=== PATIENT | female | born 1930 | race Caucasian/White ===

== ENCOUNTER 2017-03-31 11:05 | Emergency (ER) | payer MEDICARE ==
[2017-03-31 11:09] VITALS: BP 181/86; PULSE 86; RESP 20; TEMP 98.4
[2017-03-31] MEDS ORDERED: DIPH,PERTUS(ACELL)TETVAC-LF 0.5 ML VIAL IM ONE (11:40)
--- NOTE | 2017-03-31 11:49 | ED ---
General Adult HPI - General Chief complaint: Extremity Injury, Lower Stated complaint: LEFT ANKLE Time Seen by Provider: 03/31/17 11:17 Source: patient, family, RN notes reviewed Mode of arrival: wheelchair Limitations: physical limitation - History of Present Illness Initial comments: 81 female presents for evaluation of left ankle pain and swelling. Patient bumped her right ankle on Monday which was 3 days ago. She noted some increasing bruising and swelling. Patient does report pain in the morning with ambulation. This goes away as the day progresses. She was seen in urgent care and discharged home with initial x-ray read as negative. This x-ray was later interpreted by radiology as a nondisplaced fibular fracture. There was an abrasion and hematoma overlying the injury site. She was sent in for evaluation of open fracture. Patient is on blood thinners for history of atrial fibrillation. There is been no bleeding over the past 3 days. She is uncertain of her tetanus status. - Related Data Home Medications Medication Instructions Recorded Confirmed Multivitamins, Thera [Multivitamin 1 tab PO DAILY 11/01/14 03/31/17 (formulary)] Atorvastatin [Lipitor] 20 mg PO HS 08/09/15 03/31/17 Aspirin 81 mg PO DAILY 09/20/15 03/31/17 Magnesium Oxide [Mag-Ox] 400 mg PO HS 09/20/15 03/31/17 Apixaban [Eliquis] 2.5 mg PO BID 02/12/16 03/31/17 Furosemide [Lasix] 20 mg PO DAILY 02/12/16 03/31/17 Losartan [Cozaar] 50 mg PO DAILY 03/31/17 03/31/17 Allergies Allergy/AdvReac Type Severity Reaction Status Date / Time No Known Allergies Allergy Verified 03/31/17 11:19 Review of Systems ROS Statement: Those systems with pertinent positive or pertinent negative responses have been documented in the HPI. ROS Other: All systems not noted in ROS Statement are negative. 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 She says the surgery was done through her groin. Past Anesthesia/Blood Transfusion Reactions: No Reported Reaction Past Psychological History: No Psychological Hx Reported Smoking Status: Never smoker Past Alcohol Use History: None Reported Past Drug Use History: None Reported - Past Family History Father Family Medical History: COPD Sister(s) Family Medical History: Dementia Mother Family Medical History: Coronary Artery Disease (CAD) Additional Family Medical History / Comment(s): aneurysm in head General Exam Limitations: physical limitation General appearance: alert, in no apparent distress Head exam: Present: atraumatic, normocephalic Eye exam: Present: normal appearance, PERRL ENT exam: Present: mucous membranes moist Neck exam: Present: normal inspection, tenderness Respiratory exam: Present: normal lung sounds bilaterally. Absent: respiratory distress Cardiovascular Exam: Present: regular rate, normal rhythm GI/Abdominal exam: Present: soft. Absent: distended, tenderness Extremities exam: Present: normal capillary refill, other (There is a 3 cm hematoma with overlying abrasion on the left lateral ankle. There is no bony tenderness. No tenderness at the head of the fibula. No tenderness over the medial or lateral malleolus. There is no additional swelling outside of the hematoma which is proximal to the left lateral malleolus. ). Absent: joint swelling Neurological exam: Present: alert, oriented X3 Psychiatric exam: Present: normal affect, normal mood Skin exam: Present: warm, dry, erythema, abrasion Course Vital Signs 03/31/17 11:07 Temperature 98.4 F Pulse Rate 86 Respiratory 20 Rate Blood Pressure 181/86 O2 Sat by Pulse 97 Oximetry Procedures - Orthopedic Splinting/Casting Injury #1 Side: left Lower Extremity Injury Location: ankle Lower Extremity Immobilizer: stirrup splint Other Orthopedic Equipment: crutches Medical Decision Making - Medical Decision Making 87-year-old female sent for evaluation of suspected open left ankle fracture. I was able to review the x-rays, there is no significant fracture noted. There is a exceedingly tiny lucency in the distal left fibula. This is nondisplaced. This is associated with overlying hematoma and abrasion, there is no laceration. There is no suspicion for open fracture. Patient has been ambulating on this ankle for the past 3 days. She only has pain in the morning. There is no significant pain at this time. The abrasion is cleansed, is healing appropriately, bacitracin ointment is placed. Patient is placed in a splint for comfort. She will follow up with orthopedics in the next several days. Patient states she does have crutches at home. Tetanus is updated. Diagnosis: Left ankle abrasion, left nondisplaced fibular fracture Disposition Clinical Impression: Fracture of fibula, Abrasion Disposition: HOME SELF-CARE Condition: Good Referrals: Binta Da Silva MD [Primary Care Provider] - 1-2 days Duglas Trevino DO [Doctor of Osteopathic Medicine] - 1-2 days Time of Disposition: 11:48
== END 2017-03-31 12:07 | disposition home or self-care (01) ==
LOC: EC 11:05
DX: S82.402D Unspecified fracture of shaft of left fibula, subsequent encounter for closed fracture with routine healing (principal); E78.5 Hyperlipidemia, unspecified; I10 Essential (primary) hypertension; I25.10 Atherosclerotic heart disease of native coronary artery without angina pectoris; I48.91 Unspecified atrial fibrillation; M19.90 Unspecified osteoarthritis, unspecified site; Z79.01 Long term (current) use of anticoagulants; Z79.82 Long term (current) use of aspirin; Z79.899 Other long term (current) drug therapy; Z23 Encounter for immunization; W22.09XD Striking against other stationary object, subsequent encounter; Y93.89 Activity, other specified
CPT/HCPCS: 29515; 90471; 90715; 99283

== ENCOUNTER → 2017-09-22 | Outpatient (CLI) | payer MEDICARE ==
--- NOTE | 2017-09-22 11:20 | US ---
EXAMINATION TYPE: US abdomen complete DATE OF EXAM: 09/22/2017 COMPARISON: NONE CLINICAL HISTORY: R10.9 Abd pain. Intermittent epigastric pain EXAM MEASUREMENTS: Liver Length: 13.0 cm Gallbladder Wall: 0.2 cm CBD: 0.5 cm Spleen: 9.6 cm Right Kidney: 9.6 x 4.1 x 4.5 cm Left Kidney: 9.3 x 4.5 x 5.0 cm Pancreas: Tail obscured by overlying bowel gas Liver: appears wnl as visualized Gallbladder: no evidence of stones Evidence for sonographic Ha's sign: no CBD: wnl Spleen: wnl Right Kidney: cystic areas noted, largest = 4.4 x 3.0 x 3.7cm. Hyperechoic area upper pole = 0.8 x 0 .6 x 0.9cm. Upper pole cystic focus is anechoic but shows increased through transmission, questionabl e mild irregularity of the wall Left Kidney: multiple cystic areas noted, largest = 3.1 x 2.7 x 3.2cm lower pole, lower pole cyst is anechoic and shows increased through transmission. There is no perceptible wall, smaller cysts are a lso present measuring only approximately 12 mm, 11 mm and subcentimeter in size. Upper IVC: wnl Abd Aorta: Atheromatous changes are noted There is no ascites. The liver is homogenous. The intrahepatic portion of the IVC and proximal abdominal aorta are within normal limits. There is no evidence of cholelithiasis. Common bile duct is unremarkable. The visu alized portions of the pancreas are homogenous. The spleen is unremarkable. 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 Upper pole exop hytic cystic focus likely simple cystic, consider follow-up to assess for stability. There are some l imitations in exam.
== END | disposition home or self-care (01) ==
LOC: RADUSWWP 08:32
PROVIDERS: ATTEND Internal Medicine
DX: N28.1 Cyst of kidney, acquired (principal)
CPT/HCPCS: 76700

== ENCOUNTER 2018-01-09 20:24 | Emergency (ER) | payer MEDICARE ==
--- NOTE | 2018-01-09 20:46 | ED ---
Extremity Problem HPI - General Chief complaint: Extremity Problem,Nontraumatic Stated complaint: poss blood clot Time Seen by Provider: 01/09/18 20:33 Source: patient Mode of arrival: ambulatory Limitations: no limitations - History of Present Illness Initial comments: 87-year-old female patient presents to the emergency department today for evaluation of left ankle swelling. Patient states that a couple of days ago she noticed a painful lump to the inside of her left calf. Patient states that today when she woke up she noticed swelling and bruising around the ankle. Patient does have a history of atrial fibrillation and does take liquids. She denies any recent travel. She denies any injury to the ankle. States that the lump is painful however the ankle does not hurt. She is able to ambulate without difficulty. She denies any numbness or tingling to the leg. Patient denies any recent rash, fever, chills, shortness breath, chest pain, abdominal pain, nausea, vomiting, diarrhea, constipation, back pain, numbness, tingling, dizziness, weakness, hematuria, dysuria, urinary urgency, urinary frequency, headache, visual changes, or any other complaints. - Related Data Home Medications Medication Instructions Recorded Confirmed Multivitamins, Thera [Multivitamin 1 tab PO DAILY 11/01/14 01/09/18 (formulary)] Atorvastatin [Lipitor] 20 mg PO HS 08/09/15 01/09/18 Aspirin 81 mg PO DAILY 09/20/15 01/09/18 Magnesium Oxide [Mag-Ox] 400 mg PO HS 09/20/15 01/09/18 Furosemide [Lasix] 20 mg PO DAILY 02/12/16 01/09/18 Losartan [Cozaar] 50 mg PO DAILY 03/31/17 01/09/18 Apixaban [Eliquis] 2.5 mg PO BID 01/09/18 01/09/18 Omeprazole [PriLOSEC] 40 mg PO DAILY 01/09/18 01/09/18 Propafenone [Rythmol] 150 mg PO TID 01/09/18 01/09/18 Allergies Allergy/AdvReac Type Severity Reaction Status Date / Time No Known Allergies Allergy Verified 01/09/18 21:08 Review of Systems ROS Statement: Those systems with pertinent positive or pertinent negative responses have been documented in the HPI. ROS Other: All systems not noted in ROS Statement are negative. 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 She says the surgery was done through her groin. Past Anesthesia/Blood Transfusion Reactions: No Reported Reaction Past Psychological History: No Psychological Hx Reported Smoking Status: Never smoker Past Alcohol Use History: None Reported Past Drug Use History: None Reported - Past Family History Father Family Medical History: COPD Sister(s) Family Medical History: Dementia Mother Family Medical History: Coronary Artery Disease (CAD) Additional Family Medical History / Comment(s): aneurysm in head General Exam Limitations: no limitations General appearance: alert, in no apparent distress, other (This is a well- developed, well-nourished adult female patient in no acute distress. Vital signs upon presentation are temperature 98.3F, pulse 83, respirations 18, blood pressure 139/84, pulse ox 96% on room air.) Respiratory exam: Present: normal lung sounds bilaterally. Absent: respiratory distress, wheezes, rales, rhonchi, stridor Cardiovascular Exam: Present: regular rate, normal rhythm, normal heart sounds. Absent: systolic murmur, diastolic murmur, rubs, gallop, clicks Extremities exam: Present: full ROM, tenderness (Painful mass to left medial calf.), normal capillary refill, other (Left ankle swelling, ecchymosis to the medial ankle. Skin is otherwise pink, warm, and dry. Cap refills less than 3 seconds. Pedal and posttibial pulses are 2+ and equal bilaterally.). Absent: normal inspection, pedal edema, joint swelling, calf tenderness Neurological exam: Present: alert, oriented X3, CN II-XII intact Psychiatric exam: Present: normal affect, normal mood Skin exam: Present: warm, dry, intact, normal color. Absent: rash Course Vital Signs 01/09/18 20:25 Temperature 98.3 F Pulse Rate 83 Respiratory 18 Rate Blood Pressure 139/84 O2 Sat by Pulse 96 Oximetry Medical Decision Making - Medical Decision Making 87-year-old female patient presented to the emergency department today for evaluation of mass to the left medial calf and ankle swelling and ecchymosis. Physical examination did reveal some mild soft tissue swelling, nonpitting to the left ankle with ecchymosis noted to the medial aspect of the ankle. There was a circular-shaped mass noted to the left medial calf. Patient is afebrile. Vital signs are stable. We did perform ultrasound of the vascular system of the left leg and a an ultrasound of the actual mass. There is no evidence for DVT but did did show a subcutaneous nodule that should be followed clinically. Did discuss findings and results with the patient and her son. She is instructed to follow up with her primary care physician for recheck as as possible. Return parameters discussed in detail. She verbalizes understanding and agrees with this plan. - Radiology Data Radiology results: report reviewed, image reviewed Ultrasound venous Doppler duplex of the left lower extremity was obtained. Report was reviewed in its entirety. Impression is negative for DVT in the left lower extremity by Dr. Gianluca Pastrana. Ultrasound of the mass to the left lower leg was performed. Findings show probable finding. Responses subcutaneous ovoid homogenously hypoechoic mass measuring 2.5 x 0.7 x 1.0 cm. There is no acoustic shadowing. No through sound transmission. Impression by Dr. Gianluca Pastrana shows ovoid soft tissue nodule, oriented in the craniocaudal dimension. Recommend continued clinical surveillance to prove resolution. Disposition Clinical Impression: Nodule of soft tissue Disposition: HOME SELF-CARE Condition: Good Instructions: Ecchymosis (ED), Leg Edema (ED) Additional Instructions: Wear Ernesto wrap for comfort and support. Follow-up with your primary care physician for further evaluation of your nodule. Return here immediately for any new, worsening, or concerning symptoms. Is patient prescribed a controlled substance at d/c from ED?: No Referrals: Binta Da Silva MD [Primary Care Provider] - 1-2 days Time of Disposition: 21:45
--- NOTE | 2018-01-09 21:18 | US ---
EXAMINATION TYPE: US venous doppler duplex LE LT DATE OF EXAM: 01/09/2018 8:42 PM COMPARISON: NONE CLINICAL HISTORY: Pain. Left leg lump SIDE PERFORMED: Left TECHNIQUE: The lower extremity deep venous system is examined utilizing real time linear array sonog peggy with graded compression, doppler sonography and color-flow sonography. VESSELS IMAGED: External Iliac Vein (EIV) Common Femoral Vein Deep Femoral Vein Greater Saphenous Vein * Femoral Vein Popliteal Vein Small Saphenous Vein * Proximal Calf Veins (* superficial vessels) FINDINGS: Grayscale, color doppler, spectral doppler imaging performed of the deep veins of the lower extremities. There is normal flow, compressibility, vascular waveforms. IMPRESSION: NEGATIVE FOR DVT, LEFT LOWER EXTREMITY.
--- NOTE | 2018-01-09 21:35 | US ---
EXAMINATION TYPE: US extremity nonvasc mass - LT lower leg DATE OF EXAM: 01/09/2018 COMPARISON: NONE CLINICAL HISTORY: Left lower leg, medial calf lump. FINDINGS: The palpable finding corresponds to a subcutaneous ovoid homogeneously hypoechoic mass measuring 2.5 x .7 x 1.0cm . There is no acoustic shadowing. No through sound transmission. IMPRESSION: Ovoid soft tissue nodule, oriented in the craniocaudal dimension. Recommend continued cl inical surveillance to prove resolution.
[2018-01-09 22:07] VITALS: BP 153/71; PULSE 73; RESP 16; TEMP 97.5
== END 2018-01-09 22:12 | disposition home or self-care (01) ==
LOC: EC 20:24
DX: M79.89 Other specified soft tissue disorders (principal); R58 Hemorrhage, not elsewhere classified; M79.662 Pain in left lower leg; I48.91 Unspecified atrial fibrillation; E78.5 Hyperlipidemia, unspecified; I10 Essential (primary) hypertension; I25.10 Atherosclerotic heart disease of native coronary artery without angina pectoris; K21.9 Gastro-esophageal reflux disease without esophagitis; M19.90 Unspecified osteoarthritis, unspecified site; Z79.01 Long term (current) use of anticoagulants; Z79.82 Long term (current) use of aspirin; Z79.899 Other long term (current) drug therapy
CPT/HCPCS: 99283

== ENCOUNTER 2018-04-04 08:44 | Day surgery (SDC) | payer MEDICARE ==
[2018-04-03 08:25] VITALS: BMI 21.6
[~2018-04-04 08:44] MED LIST: LACTATED RINGERS 1,000 ML IV SCH
[2018-04-04 09:50] VITALS: TEMP 97.7
[2018-04-04] MEDS ORDERED: PROPOFOL 10 MG/ML 20 ML VIAL IV ONE (10:28)
[2018-04-04] MEDS ORDERED: LIDOCAINE 1% INJ 10MG/ML (20 ML MDV) ONE (10:28)
--- NOTE | 2018-04-04 10:46 | P.PCN ---
Date of Procedure: 04/04/18 Procedure(s) Performed: BRIEF HISTORY: Patient is a 88-year-old, pleasant, white female, scheduled for an upper endoscopy as a part of evaluation of epigastric pain and GERD of several months duration.. She was started on Prilosec 20 mg daily with no help. She is hence scheduled for an upper endoscopy to evaluate further PROCEDURE PERFORMED: Esophagogastroduodenoscopy with biopsy. PREOPERATIVE DIAGNOSIS: GERD/epigastric pain. IV sedation per anesthesia. PROCEDURE: After informed consent was obtained, the patient was brought into the endoscopy unit. IV sedation was administered by Anesthesia under continuous monitoring. Initially the Olympus GIF-140 video endoscope was inserted into the mouth. Esophagus intubated without any difficulty. It was gradually advanced into the stomach and duodenum and carefully examined. The bulb and the second part of the duodenum appeared normal. The scope at this time was withdrawn to the stomach, adequately insufflated with air, and upon careful examination, mucosa of the antrum, had mild gastritis and biopsies were done from this area. The body, cardia and the fundus appeared normal. The scope was then withdrawn into the esophagus. The GE junction was located at 36 cm from the incisors. Small sign Hiatal hernia noted. The esophagus appeared normal. There were no erosions or ulcerations seen and the patient tolerated the procedure well. IMPRESSION: 1. Mild antral gastritis. 2. Small sliding Hiatal hernia. RECOMMENDATIONS: The findings of this examination were discussed with the patient well as her family. She was advised to follow with the biopsy results. She will continue with omeprazole 20 mg daily and follow antireflux measures..
[2018-04-04 10:58] VITALS: BP 123/79; PULSE 82; RESP 14
== END 2018-04-04 11:34 | disposition home or self-care (01) ==
LOC: ORWHC2ENDO 08:44
PROVIDERS: ATTEND Internal Medicine Gastroenterology
DX: K29.50 Unspecified chronic gastritis without bleeding (principal); K21.9 Gastro-esophageal reflux disease without esophagitis; K44.9 Diaphragmatic hernia without obstruction or gangrene; I25.10 Atherosclerotic heart disease of native coronary artery without angina pectoris; I10 Essential (primary) hypertension; E78.5 Hyperlipidemia, unspecified; I48.91 Unspecified atrial fibrillation; Z79.01 Long term (current) use of anticoagulants; Z95.0 Presence of cardiac pacemaker; M19.90 Unspecified osteoarthritis, unspecified site; Z79.82 Long term (current) use of aspirin; Z79.899 Other long term (current) drug therapy
CPT/HCPCS: 88305; 43239; J2001; J2704